=== PATIENT | male | born 1955 | race Caucasian/White ===

== ENCOUNTER 2016-06-17 11:06 | Emergency (ER) | payer OTHER ==
[2016-06-17 11:27] VITALS: BMI 28.2
--- NOTE | 2016-06-17 11:38 | PDOC ---
History of Present Illness - General History Source: Patient, Spouse Exam Limitations: No Limitations - History of Present Illness Initial Comments: 06/17/16 15:52 The patient is a 61 year old male, with no significant past medical history, who presents to the emergency department with constant epigastric pain since yesterday around 3PM. The patient describes his pain as sharp. He additionally reports feeling nauseous with one episode of nonbilious, nonbloody vomiting yesterday. The patients is with him in the ED. The patient states that he has experienced this pain before, he reports multiple episodes of similar symptoms over the past 6 months, with episodes typically lasting an hour or two before subsiding. The patient has not seen a doctor for these symptoms as he does not have a PCP. Over the past 6 months, he states that when he feels the pain coming on, he eats celery which usually helps the pain to subside. He notes that the pain is not associated with certain foods or exertion. The patient presents today because his insisted he get evaluated. Since yesterday, the patient reports eating celery and taking 2 Tylenol, with minimal relief. The patient denies fever, chills, diarrhea, melena or dysuria. Allergies: None reported. Past Surgical History: Hernia Repair Social History: Non smoker. Denies alcohol or drug use. <Fawn Owens - Last Filed: 06/17/16 18:21> <Dmitri Le - Last Filed: 06/18/16 11:49> - General Chief Complaint: Pain, Acute Stated Complaint: ABD PAIN Time Seen by Provider: 06/17/16 11:33 Past History <Fawn Owens - Last Filed: 06/17/16 18:21> - Past Medical History Other medical history: DENIES. - Surgical History Abdominal Surgery: Yes (HERNIA) - Psycho/Social/Smoking Cessation Hx Suicidal Ideation: No Smoking History: Never smoked <Dmitri Le - Last Filed: 06/18/16 11:49> - Past Medical History Allergies/Adverse Reactions: Allergies Allergy/AdvReac Type Severity Reaction Status Date / Time No Known Allergies Allergy Verified 06/17/16 11:23 Home Medications: Ambulatory Orders NK [No Known Home Medication] 06/17/16 Review of Systems - Review of Systems Able to Perform ROS?: Yes Comments:: 06/17/16 15:52 CONSTITUTIONAL: No reported: Fever, Chills, Diaphoresis, Generalized Weakness, Malaise, Loss of Appetite HEENT: No reported: Rhinorrhea, Nasal Congestion, Throat Pain, Throat Swelling, Difficulty Swallowing, Mouth Swelling, Ear Pain, Eye Pain, Visual Changes CARDIOVASCULAR: No reported: Chest Pain, Syncope, Palpitations, Irregular Heart Rate, Lightheadedness, Peripheral Edema RESPIRATORY: No reported: Cough, Shortness of Breath, SOB with Exertion, Orthopnea, Wheezing , Stridor, Hemoptysis GASTROINTESTINAL: Reported: +Nausea, Vomiting, Epigastric Pain No reported: Abdominal Distension, Diarrhea, Constipation, Melena, Hematochezia GENITOURINARY: No reported: Dysuria, Frequency, Urgency, Hesitancy, Flank Pain, Genital Pain MUSCULOSKELETAL: No reported: Myalgia, Arthralgia, Joint Swelling, Back pain, Neck Pain SKIN: No reported: Rash, Itching, Pallor HEMATOLOGIC/IMMUNOLOGIC: No reported: Easy Bleeding, Easy Bruising, Lymphadenopathy, Frequent infections ENDOCRINE: No reported: Unexplained Weight Gain, Unexplained Weight Loss, Heat Intolerance , Cold Intolerance NEUROLOGIC: No reported: Headache, Focal Weakness, Paresthesias, Vertigo, Lightheadedness, Unsteady Gait, Seizure, Mental Status Changes, Incontinence PSYCHIATRIC: No reported: Anxiety, Depression <Fawn Owens - Last Filed: 06/17/16 18:21> *Physical Exam - Vital Signs Last Vital Signs Temp Pulse Resp BP Pulse Ox 97.6 F 51 L 19 135/81 97 06/17/16 11:23 06/17/16 11:23 06/17/16 11:23 06/17/16 11:23 06/17/16 11:23 - Physical Exam Comments: 06/17/16 15:52 GENERAL: The patient is awake, alert, and fully oriented, nontoxic - in no acute distress. HEAD: Normocephalic, atraumatic. EYES: Extraocular movements intact, sclera anicteric, conjunctiva clear. ENT: Normal voice, moist mucous membranes. NECK: Normal range of motion, supple. LUNGS: Breath sounds equal, clear to auscultation bilaterally. No wheezes, no rhonchi, no rales. HEART: Regular rate and rhythm, without murmur, rub or gallop. ABDOMEN: Soft, nontender, normoactive bowel sounds. No guarding, no rebound. No CVA tenderness EXTREMITIES: Normal range of motion, no edema. No clubbing or cyanosis. No cords , erythema, or tenderness. NEUROLOGICAL: No facial asymmetry. Normal speech. PSYCH: Normal mood, normal affect. SKIN: Warm, dry, normal turgor. <Fawn Owens - Last Filed: 06/17/16 18:21> - Vital Signs Last Vital Signs Temp Pulse Resp BP Pulse Ox 97.6 F 51 L 19 135/81 97 06/17/16 11:23 06/17/16 11:23 06/17/16 11:23 06/17/16 11:23 06/17/16 11:23 <Dmitri Le - Last Filed: 06/18/16 11:49> Heart Score/ECG Review - ECG Impressions Comment:: 06/17/16 12:49 Twelve-lead EKG was performed and reviewed by me. There is normal sinus rhythm with a rate of 54 The axis is normal. The intervals are normal. There is normal R wave progression There are no ST or T wave abnormalities. Impression: Sinus bradycardia <Dmitri Le - Last Filed: 06/18/16 11:49> ED Treatment Course - LABORATORY CBC & Chemistry Diagram: 06/17/16 12:09 06/17/16 12:09 <Fawn Owens - Last Filed: 06/17/16 18:21> - LABORATORY CBC & Chemistry Diagram: 06/17/16 12:09 06/17/16 12:09 <Dmitri Le - Last Filed: 06/18/16 11:49> Medical Decision Making - Medical Decision Making 06/17/16 14:03 EXAM: US/ABDOMEN US-LIMITED Reviewed By: Dr. Adonis Talavera IMPRESSION: 1. Partially contracted and thick walled gallbladder with evidence of adenomyomatosis. There is no evidence of cholelithiasis or biliary ductal dilatation. 2. Complex cystic structure upper pole right kidney. CT follow-up recommended. EXAM: CT/ABDOMEN & PELVIS CT W/WO CONTR Reviewed By: Dr. Zarina Burch IMPRESSION: Diffuse thickening of the gallbladder wall with mild stranding of the surrounding fat/mesentery. Rule out acalculous cholecystitis. Correlate clinically to determine further evaluation. Large lobulated complex right renal upper pole cyst measuring 7.7 cm without enhancement. MRI of the kidneys could be obtained for further evaluation and to serve as a baseline. Otherwise a follow-up CT scan is suggested. Enlarged prostate gland with calcifications. Please correlate with PSA levels. Called Dr. Cunningham at at 17:21, 17:52. Referred to answering service, awaiting callback. Dr. Cunningham returned call at 18:02, case discussed. <Fawn Owens - Last Filed: 06/17/16 18:21> - Medical Decision Making 06/17/16 12:01 61y M no pmhx presents with several months of intermittent epigastric pain typically sharp in nature, occasionally after eating and usually resolves when he eats cellery. Last time was last night and he took celery w/o significant improvement, but improved with tylenol. +1 episode of nbnb ovmiting yesterday, No exertional symptoms, sob, diaphoresis. Pain currently minimal. exam unremarkable, vitals normal ?gb disease? will ck cbc, cmp, lipase, us, will give pepcid/maalox will reassess A portion of this note was documented by scribe services under my direction. I have reviewed the details of the note, within reason, and agree with the documentation with the following case summary and management plan written by me 06/17/16 13:49 Patient's blood work was reviewed T bili slightly elevated The patient's ultrasound reveals a partially contracted thick-walled gallbladder with signs of adenomyomatosis, complex cyst seen on R kidney will obtain ct for further elucidation. 06/17/16 18:[address] Cunningham ct abdomen shows some mild wall thickening and stranding - however pt has no clinical signs of cholecystitis pt reassessed and abdomen is soft nontender would recommend outpatient HIDA scan. will give pt a copy of blood work, and images for fu as outpatient. will refer the ptaient out to our clinic. the results and follow up instructions were discussed with the patient in mongolian and croatian via a client partner. pt agrees with our plan and will follow up for an outpatient HIDA scan. I discussed the physical exam findings, ancillary test results and final diagnoses with the patient. I answered all of the patient's questions. The patient was satisfied with the care received and felt comfortable with the discharge plan and treatment plan. The patient will call their primary care physician within 24 hours to arrange follow-up and will return to the Emergency Department with any new, persistent or worsening symptoms. <Dmitri Le - Last Filed: 06/18/16 11:49> *DC/Admit/Observation/Transfer - Attestations Scribe Attestion: 06/17/16 12:10 Documentation prepared by Fawn Owens, acting as medical staff services coordinator for Dmitri Le MD. <Fawn Owens - Last Filed: 06/17/16 18:21> - Discharge Dispostion Admit: No <Dmitri Le - Last Filed: 06/18/16 11:49> Diagnosis at time of Disposition: Renal mass Abdominal pain Qualifiers: Abdominal location: epigastric Qualified Code(s): R10.13 - Epigastric pain - Discharge Dispostion Disposition: HOME Condition at time of disposition: Improved - Referrals Referrals: [facility] [Other] - Patient Instructions Printed Discharge Instructions: DI for Abdominal Pain-Adult Additional Instructions: Se observ un quiste en el rin, por favor, siga con mills mdico de atencin primaria para que vidya reevaluado. Hubo un cierto engrosamiento de mills pared gallbadder - por favor tenga cristin exploracin de HIDA para pacientes ambulatorios para cristin evaluacin ms detallada. Si tiene dolor abdominal recurrente, u otras preocupaciones, regrese al departamento de emergencias para cristin evaluacin posterior. [facility] y los resultados de imgenes se incluyen para mills revisin con mills mdico. There was a cyst seen on your kidney, please follow up with your primary care doctor to have this reevaluated. There was some thickening of your gallbadder wall - please have an outpatient HIDA scan for further evaluation. If you have recurrent abdominal pain, or other concerns, return to the emergency department for further evaluation. Your lab and imaging results are included for review with your doctor. Print Language: CITIZEN OF [place]
[2016-06-17] MEDS ORDERED: FAMOTIDINE 20 MG/50 ML IVPB 20 MG in PREMIX 50 IVPB ONE (12:01)
[2016-06-17] MEDS ORDERED: MAG HYDROX/AL HYDROX/SIMETH 355 ML ORAL.SUSP PO ONE (12:01)
[2016-06-17] MEDS ORDERED: MAG HYDROX/AL HYDROX/SIMETH 30 ML UNIT-DOSE CUP ONE (12:21)
[2016-06-17] MEDS ORDERED: FAMOTIDINE 20 MG/50 ML IVPB 50 ML IVPB ONE (12:21)
[2016-06-17 12:24] LABS: BASOPHIL 0.6 % (0-2.0); EOSINOPHIL 2.5 % (0-4.5); MCH 30.7 pg (25.7-33.7); MCHC 34.4 g/dl (32.0-35.9); MEAN CELL VOLUME 89.2 fl (80-96); MEAN PLT VOLUME 9.1 fl (7.5-11.1); NEUTROPHILS 65.2 % (42.8-82.8); PLATELET COUNT 168 K/MM3 (134-434); RDW 12.8 % (11.9-15.9); WHITE BLOOD COUNT 9.8 K/mm3 (4.0-10.0)
[2016-06-17 12:28] LABS: URINE APPEARANCE CLOUDY; URINE BILIRUBIN NEGATIVE (NEGATIVE); URINE BLOOD NEGATIVE (NEGATIVE); URINE COLOR YELLOW; URINE GLUCOSE (UA) NEGATIVE (NEGATIVE); URINE KETONE NEGATIVE (NEGATIVE); URINE LEUK ESTERASE NEGATIVE (NEGATIVE); URINE NITRITE NEGATIVE (NEGATIVE); URINE PROTEIN NEGATIVE (NEGATIVE); URINE UROBILINOGEN NEGATIVE E.U./dl (0.2-1.0)
[2016-06-17 12:56] LABS: ALBUMIN 3.7 g/dl (3.4-5.0); ANION GAP 7 (8-16); BILIRUBIN,TOTAL 1.3 mg/dL (0.2-1.0); CALCIUM 8.8 mg/dL (8.5-10.1); CO2 30 mmol/L (21-32); CREATININE 0.8 mg/dL (0.7-1.3); GLUCOSE,RANDOM 100 mg/dL (74-106); SGOT/AST 13 U/L (15-37); TOT PROT 7.1 g/dl (6.4-8.2)
[2016-06-17 13:03] LABS: ALK PHOS 61 U/L (45-117); SGPT/ALT 21 U/L (12-78); TROPONIN I 0.03 ng/ml (0.00-0.05)
--- NOTE | 2016-06-17 15:45 | EKG ---
Test Reason : Blood Pressure : / mmHG Vent. Rate : 054 BPM Atrial Rate : 054 BPM P-R Int : 164 ms QRS Dur : 096 ms QT Int : 424 ms P-R-T Axes : 002 031 010 degrees QTc Int : 402 ms SINUS BRADYCARDIA OTHERWISE NORMAL ECG WHEN COMPARED WITH ECG OF 27-OCT-2009 10:36, LIKELY NO SIGNIFICANT CHANGES WERE SEEN Confirmed by GILDA GOMES MD ([id number]) on 06/17/2016 3:45:27 PM Referred By: Confirmed By:GILDA GOMES MD
[2016-06-17 19:11] VITALS: BP 129/75; PULSE 68; TEMP 98.4
== END 2016-06-17 18:45 | disposition home or self-care (01) ==
LOC: JER 11:06
PROC: 3E033GC Introduction of Other Therapeutic Substance into Peripheral Vein, Percutaneous Approach (ICD-10-PCS; principal; 2016-06-17)
DX: R10.13 Epigastric pain (principal); N28.89 Other specified disorders of kidney and ureter
CPT/HCPCS: 36415; 74178-TC; 76705-TC; 80053; 81003; 82550; 83690; 84484; 85025; 93005; 93010; 99282-25